=== PATIENT | male | born 1960 | race Caucasian/White ===

== ENCOUNTER 2018-03-28 06:00 | Day surgery (SDC) | payer OTHER ==
[~2018-03-28] VITALS: Ht 172.7 cm; Wt 90.5 kg
[~2018-03-28 06:00] MED LIST: ALBU8.5H8 IH; AZIT250T9 PO; BACL20TA PO; CALC-15 PO; CETI-290 PO; CLOP75 PO; DICY10 PO; FLUT16H NASAL; FURO20 PO; GABA-531 PO; LISI2.5T2 PO; METO-296 PO; MOME13HF2 IH; MONT10TA21 PO; NITR.4 SL; OMEP20 PO; ROSU40 PO; TEMA15CA PO
[2018-03-28] MEDS ORDERED: LIDOCAINE 4% 50 ML SOLUTION TP ONE (06:01)
[2018-03-28] MEDS ORDERED: BENZOCAINE 20% 50 MCG/SPRAY 57 GM TP ONE (06:01)
[2018-03-28] MEDS ORDERED: LIDOCAINE 2% 30 ML JELLY TP ONE (06:01)
[2018-03-28] MEDS ORDERED: ALBUTEROL SULFATE 2.5 MG/0.5 ML NEB SOLUTION NEB ONE (06:01)
[2018-03-28] MEDS ORDERED: SODIUM CHLORIDE 0.9% 1,000 ML IV ONE ×2 (06:20→07:00)
[2018-03-28] MEDS ORDERED: METF-960 PO (08:06)
[2018-03-28] MEDS ORDERED: SITA100 PO (08:06)
[2018-03-28] MEDS ORDERED: PROP10DR4 OP (08:06)
[2018-03-28] MEDS ORDERED: INSLAN SQ (08:06)
[2018-03-28] MEDS ORDERED: MIDAZOLAM HCL 2 MG/2 ML VIAL ONE (08:08)
[2018-03-28] MEDS ORDERED: FentaNYL CITRATE-PF 100 MCG/2 ML VIAL ONE (08:08)
[2018-03-28] MEDS ORDERED: MethylPREDNISolone SOD SUCC 125 MG/2 ML VIAL IVP ONE (09:00)
[2018-03-28 16:50] LABS: GLUCOMETER DEV NAME(LOC) SDS 5; GLUCOSE,POINT OF CARE 104 MG/DL (70-110)
[2018-03-28] MEDS ORDERED: OXYGEN THERAPY IH SCH (20:00)
== END 2018-03-28 10:30 | disposition home or self-care (01) ==
LOC: SURGERY 06:00
PROVIDERS: ATTEND Internal Medicine Critical Care Medicine
DX: J38.4 Edema of larynx (principal); B37.0 Candidal stomatitis; F17.210 Nicotine dependence, cigarettes, uncomplicated; E11.9 Type 2 diabetes mellitus without complications; G47.33 Obstructive sleep apnea (adult) (pediatric); M19.90 Unspecified osteoarthritis, unspecified site; E78.00 Pure hypercholesterolemia, unspecified; I25.2 Old myocardial infarction; I11.9 Hypertensive heart disease without heart failure; F41.8 Other specified anxiety disorders; Z98.41 Cataract extraction status, right eye; Z98.42 Cataract extraction status, left eye; Z72.89 Other problems related to lifestyle; Z95.5 Presence of coronary angioplasty implant and graft; Z87.01 Personal history of pneumonia (recurrent); Z86.74 Personal history of sudden cardiac arrest; Z79.01 Long term (current) use of anticoagulants; Z79.891 Long term (current) use of opiate analgesic; Z79.4 Long term (current) use of insulin; Z79.84 Long term (current) use of oral hypoglycemic drugs; Z98.890 Other specified postprocedural states; Z79.899 Other long term (current) drug therapy
CPT/HCPCS: 31623; 31624; 71045; 82962; 87070; 87205; 87206; 87220; 88108; 88312; 93005; J2250; J2930; J3010; J7030; 87015

== ENCOUNTER 2020-04-15 06:10 | Day surgery (SDC) | payer OTHER ==
[2020-04-14 10:14] LABS: COVID AG,FIA SOURCE NASOPHARYNGEAL
[~2020-04-15] VITALS: Ht 172.7 cm; Wt 94.5 kg
[~2020-04-15 06:10] MED LIST changes: -AZIT250T9 PO; -CETI-290 PO; +CETI-450 PO; +CLOP-31 PO; -CLOP75 PO; +GABA-1181 PO; -GABA-531 PO; +INSLAN SQ; +METF-960 PO; +MONT-35 PO; -MONT10TA21 PO; -NITR.4 SL; +NITR0.4T52 SL; +PROP10DR4 OP; +SITA100 PO; +SODIUM CHLORIDE 0.9% 1,000 ML ONE
[2020-04-15] MEDS ORDERED: LIDOCAINE 4% 50 ML SOLUTION TP ONE (06:11)
[2020-04-15] MEDS ORDERED: BENZOCAINE 20% 50 MCG/SPRAY 57 GM TP ONE (06:11)
[2020-04-15] MEDS ORDERED: ALBUTEROL SULFATE 2.5 MG/0.5 ML NEB SOLUTION NEB ONE (06:11)
[2020-04-15] MEDS ORDERED: LIDOCAINE 2% 30 ML JELLY TP ONE (06:11)
[2020-04-15] MEDS ORDERED: SODIUM CHLORIDE 0.9% 1,000 ML IV ONE (07:00)
[2020-04-15] MEDS ORDERED: MIDAZOLAM HCL 2 MG/2 ML VIAL ONE (07:36)
[2020-04-15] MEDS ORDERED: FentaNYL CITRATE-PF 100 MCG/2 ML VIAL ONE (07:37)
[2020-04-15] MEDS ORDERED: MethylPREDNISolone SOD SUCC 125 MG/2 ML VIAL IVP ONE (09:00)
[2020-04-15] MEDS ORDERED: MethylPREDNISolone SOD SUCC 125 MG/2 ML VIAL ONE (09:14)
[2020-04-15] MEDS ORDERED: OXYGEN THERAPY IH SCH (20:00)
== END 2020-04-15 10:30 | disposition home or self-care (01) ==
LOC: SURGERY 06:10
PROVIDERS: ATTEND Internal Medicine Critical Care Medicine
DX: J38.4 Edema of larynx (principal); B37.0 Candidal stomatitis; Z95.5 Presence of coronary angioplasty implant and graft; Z98.890 Other specified postprocedural states; Z79.01 Long term (current) use of anticoagulants; Z20.828 Contact with and (suspected) exposure to other viral communicable diseases
CPT/HCPCS: 31623; 31624; 71045; 87015; 87070; 87101; 87205; 87206; 87220; 87426; 88108; 88184; 88185; 88312; 93005; C9803; J2250; J2930; J3010; J7030; J7613; Z7610

== ENCOUNTER 2020-11-07 05:49 | Day surgery (SDC) | payer OTHER ==
[~2020-11-07] VITALS: Ht 172.7 cm; Wt 94.5 kg
[~2020-11-07 05:49] MED LIST changes: -CLOP-31 PO; +CLOP75TA60 PO; -SODIUM CHLORIDE 0.9% 1,000 ML ONE
[2020-11-07 06:23] LABS: COVID AG,FIA SOURCE NASOPHARYNGEAL
[2020-11-07] MEDS ORDERED: SODIUM CHLORIDE 0.9% 1,000 ML IV ONE (06:30)
[2020-11-07] MEDS ORDERED: SODIUM CHLORIDE 0.9% 1,000 ML ONE (06:46)
[2020-11-07] MEDS ORDERED: CLOP75TA32 PO (06:56)
[2020-11-07] MEDS ORDERED: ASPI-1444 PO (06:56)
[2020-11-07] MEDS ORDERED: DOCU-350 PO (06:56)
[2020-11-07] MEDS ORDERED: BUSP10TA23 PO (06:56)
[2020-11-07] MEDS ORDERED: CYAN-53 PO (06:56)
[2020-11-07] MEDS ORDERED: CETI10TA58 PO (06:56)
[2020-11-07] MEDS ORDERED: PRED10 PO (06:56)
[2020-11-07] MEDS ORDERED: LOSA50TA37 PO (06:56)
[2020-11-07] MEDS ORDERED: METF-446 PO (06:56)
[2020-11-07] MEDS ORDERED: SERT-439 PO (06:56)
[2020-11-07] MEDS ORDERED: KETO5DRO6 OU (06:56)
[2020-11-07] MEDS ORDERED: INSU100V39 SQ (06:56)
[2020-11-07] MEDS ORDERED: HYDR25TA PO (06:56)
[2020-11-07] MEDS ORDERED: PANT40TA54 PO (06:56)
[2020-11-07] MEDS ORDERED: FAMO20TA8 PO (06:56)
[2020-11-07] MEDS ORDERED: DICL20GE TP (06:56)
[2020-11-07] MEDS ORDERED: METO-408 PO (06:56)
[2020-11-07] MEDS ORDERED: MIDAZOLAM HCL 2 MG/2 ML VIAL ONE (07:39)
[2020-11-07] MEDS ORDERED: FentaNYL CITRATE PF 100 MCG/2 ML VIAL ONE (07:39)
[2020-11-07 07:58] LABS: GLUCOMETER DEV NAME(LOC) SDS.; GLUCOSE,POINT OF CARE 206 MG/DL (70-110)
[2020-11-07] MEDS ORDERED: MethylPREDNISolone SOD SUCC 125 MG/2 ML VIAL IVP ONE (09:00)
[2020-11-07] MEDS ORDERED: MethylPREDNISolone SOD SUCC 125 MG/2 ML VIAL ONE (09:20)
[2020-11-07] MEDS ORDERED: OXYGEN THERAPY IH SCH (20:00)
== END 2020-11-07 10:50 | disposition home or self-care (01) ==
LOC: SURGERY 05:49
PROVIDERS: ATTEND Internal Medicine Critical Care Medicine
DX: J38.4 Edema of larynx (principal); B37.0 Candidal stomatitis; E11.9 Type 2 diabetes mellitus without complications; Z95.5 Presence of coronary angioplasty implant and graft; Z98.890 Other specified postprocedural states; Z98.42 Cataract extraction status, left eye; Z98.41 Cataract extraction status, right eye; Z79.899 Other long term (current) drug therapy
CPT/HCPCS: 31623; 31624; 71045; 82962; 87015; 87070; 87101; 87205; 87206; 87220; 87426; 88108; 88184; 88185; 88312; C9803; J2250; J2930; J3010; J7030

== ENCOUNTER 2021-08-07 06:00 | Day surgery (SDC) | payer OTHER ==
[~2021-08-07] VITALS: Ht 172.7 cm; Wt 96.4 kg
[~2021-08-07 06:00] MED LIST changes: +ASPI-1444 PO; -BACL20TA PO; +BUSP10TA23 PO; -CALC-15 PO; +CETI10TA58 PO; +CLOP75TA32 PO; +CYAN-53 PO; +DICL20GE TP; +DOCU-350 PO; +FAMO20TA8 PO; -FURO20 PO; -GABA-1181 PO; +HYDR25TA PO; +INSU100V39 SQ; +KETO5DRO6 OU; -LISI2.5T2 PO; +LOSA-382 PO; +METF-446 PO; -METF-960 PO; -METO-296 PO; +METO-408 PO; +PANT40TA54 PO; +PRED10 PO; +SERT-439 PO
[2021-08-07] MEDS ORDERED: ALBUTEROL SULFATE 2.5 MG/0.5 ML NEB SOLUTION NEB ONE (06:01)
[2021-08-07] MEDS ORDERED: LIDOCAINE 4% 50 ML SOLUTION TP ONE (06:01)
[2021-08-07] MEDS ORDERED: LIDOCAINE 2% 30 ML JELLY TP ONE (06:01)
[2021-08-07] MEDS ORDERED: BENZOCAINE 20% 50 MCG/SPRAY 57 GM TP ONE (06:01)
[2021-08-07] MEDS ORDERED: SODIUM CHLORIDE 0.9% 1,000 ML IV ONE (06:30)
[2021-08-07 06:43] LABS: COVID AG,FIA SOURCE NASOPHARYNGEAL
[2021-08-07 07:40] LABS: GLUCOMETER DEV NAME(LOC) SDS.; GLUCOSE,POINT OF CARE 140 MG/DL (70-110)
[2021-08-07] MEDS ORDERED: FentaNYL CITRATE PF 100 MCG/2 ML VIAL ONE (08:01)
[2021-08-07] MEDS ORDERED: MIDAZOLAM HCL 2 MG/2 ML VIAL ONE (08:01)
[2021-08-07] MEDS ORDERED: SERT-158 PO (08:11)
[2021-08-07] MEDS ORDERED: CLOP75TA60 PO (08:11)
[2021-08-07] MEDS ORDERED: SITA100 PO (08:11)
[2021-08-07] MEDS ORDERED: BISA-151 PO (08:11)
[2021-08-07] MEDS ORDERED: DOCU-350 PO (08:11)
[2021-08-07] MEDS ORDERED: FURO20 PO (08:11)
[2021-08-07] MEDS ORDERED: TAMS-13 PO (08:11)
[2021-08-07] MEDS ORDERED: LOSA-382 PO (08:11)
[2021-08-07] MEDS ORDERED: LISI-892 PO (08:11)
[2021-08-07] MEDS ORDERED: PRED10 PO (08:11)
[2021-08-07] MEDS ORDERED: MONT-35 PO (08:13)
[2021-08-07] MEDS ORDERED: FAMO20TA8 PO (08:13)
[2021-08-07] MEDS ORDERED: TRAZ150T80 PO (08:15)
[2021-08-07] MEDS ORDERED: MethylPREDNISolone SOD SUCC 125 MG/2 ML VIAL IVP ONE (08:45)
[2021-08-07] MEDS ORDERED: MethylPREDNISolone SOD SUCC 125 MG/2 ML VIAL ONE (08:57)
[2021-08-07] MEDS ORDERED: OXYGEN THERAPY IH SCH (20:00)
== END 2021-08-07 11:10 | disposition home or self-care (01) ==
LOC: SURGERY 06:00
PROVIDERS: ATTEND Internal Medicine Critical Care Medicine
DX: J38.4 Edema of larynx (principal); B37.0 Candidal stomatitis; I10 Essential (primary) hypertension; E11.9 Type 2 diabetes mellitus without complications; I25.2 Old myocardial infarction; Z98.890 Other specified postprocedural states; F17.210 Nicotine dependence, cigarettes, uncomplicated; Z79.899 Other long term (current) drug therapy
CPT/HCPCS: 31623; 31624; 71045; 82962; 87015; 87070; 87101; 87206; 87220; 87426; 88184; 88185; C9803; J2250; J2930; J3010; 88112; 88312; J7613; Z7610